=== PATIENT | male | born 1950 | race Caucasian/White ===

== ENCOUNTER 2020-03-06 10:35 | Emergency (ER) | payer MEDICARE ==
--- NOTE | 2020-03-06 11:05 | EDM.PDOC ---
ED HPI GENERAL MEDICAL PROBLEM - General Chief Complaint: Lower Extremity Injury/Pain Stated Complaint: HURT LEFT ANKLE Time Seen by Provider: 03/06/20 10:55 Source of Information: Reports: Patient, RN History Limitations: Reports: No Limitations - History of Present Illness INITIAL COMMENTS - FREE TEXT/NARRATIVE: 69 yo male fell off a ladder about 4 ft off the ground this morning resulting in injury to his L ankle/heel. Says the entire foot is numb now. 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: Other (see below) (none) - Related Data Allergies Allergy/AdvReac Type Severity Reaction Status Date / Time Penicillins Allergy Cannot Verified 03/06/20 10:59 Remember Home Meds: Home Meds Acetaminophen/HYDROcodone [Gillett 325-5 MG] 1 - 2 tab PO Q6H PRN #20 tab 03/06/20 [Rx] Omeprazole 1 tab PO DAILY 03/06/20 [History] atenoloL [Atenolol] 1 tab PO DAILY 03/06/20 [History] atorvaSTATin Calcium [Atorvastatin Calcium] 1 tab PO DAILY 03/06/20 [History] lisinopriL [Lisinopril] 1 tab PO DAILY 03/06/20 [History] Past Medical History - Past Surgical History HEENT Surgical History: Reports: Tonsillectomy Cardiovascular Surgical History: Reports: Coronary Artery Bypass, Coronary Artery Stent Social & Family History - Tobacco Use Smoking Status *Q: Never Smoker Review of Systems - Review of Systems Review Of Systems: See Below Constitutional: Reports: No Symptoms Musculoskeletal: Reports: Foot Pain (L foot and ankle) Skin: Reports: No Symptoms Neurological: Reports: Numbness (L foot and ankle) ED EXAM, GENERAL - Physical Exam Exam: See Below Exam Limited By: No Limitations General Appearance: Alert, WD/WN, No Apparent Distress Extremities: Normal Inspection, No Pedal Edema, Limited Range of Motion (due to pain, L heel pain with palpation). No: Normal Range of Motion, Non-Tender, Pedal Edema Neurological: Alert, Oriented, CN II-XII Intact, Normal Cognition, No Motor/Sensory Deficits Psychiatric: Normal Affect, Normal Mood Skin Exam: Warm, Dry, Intact, Normal Color, No Rash Course - Vital Signs Last Recorded V/S: Last Vital Signs Temp 36.1 C 03/06/20 11:04 Pulse 64 03/06/20 11:04 Resp 18 03/06/20 11:04 BP 143/62 H 03/06/20 11:04 Pulse Ox 100 03/06/20 11:04 - Orders/Labs/Meds Orders: Active Orders 24 hr Category Date Time Status Ankle Min 3V Lt [CR] Stat Exams 03/06/20 10:41 Taken Calcaneous Lt [CR] Stat Exams 03/06/20 11:02 Taken Acetaminophen/HYDROcodone [Gillett 325-5 MG] Med 03/06/20 11:49 Once 1 tab PO ONETIME ONE Medication Orders Hydrocodone Bitart/Acetaminophen (Gillett 325-5 Mg) 1 tab PO ONETIME ONE Stop: 03/06/20 11:50 Meds: Medications Generic Name Dose Route Start Last Admin Trade Name Freq PRN Reason Stop Dose Admin Hydrocodone Bitart/Acetaminophen 1 tab 03/06/20 11:49 Gillett 325-5 Mg PO 03/06/20 11:50 ONETIME ONE - Radiology Interpretation Free Text/Narrative:: L calcaneous X-ray-Fx'd L ankle X-ray-neg Departure - Departure Time of Disposition: 12:10 Disposition: Home, Self-Care 01 Condition: Fair Clinical Impression: Left calcaneal fracture Qualifiers: Encounter type: initial encounter Calcaneus location: unspecified portion of calcaneus Fracture type: closed Fracture alignment: nondisplaced Qualified Code(s): S92.002A - Unspecified fracture of left calcaneus, initial encounter for closed fracture - Discharge Information *PRESCRIPTION DRUG MONITORING PROGRAM REVIEWED*: No *COPY OF PRESCRIPTION DRUG MONITORING REPORT IN PATIENT LÓPEZ: No Prescriptions: Acetaminophen/HYDROcodone [Gillett 325-5 MG] 1 - 2 tab PO Q6H PRN #20 tab PRN Reason: Pain Referrals: PCP,None [Primary Care Provider] - Forms: ED Department Discharge Additional Instructions: Elevate your foot to reduce swelling/pain. Take ibuprofen 400 mg every 6 hrs with food for pain relief. Add either acetaminophen OR Gillett for added pain relief. No weight bearing on that leg, either use crutches or a knee walker to get around. Take your X-ray copies to an orthopedic appt that you should have before the end of this week. Sepsis Event Note (ED) - Focused Exam Vital Signs: Vital Signs Temp Pulse Resp BP Pulse Ox 03/06/20 11:04 36.1 C 64 18 143/62 H 100 03/06/20 10:59 36.1 C 64 18 143/62 H 100 - My Orders Last 24 Hours: My Active Orders 03/06/20 10:41 Ankle Min 3V Lt [CR] Stat 03/06/20 11:02 Calcaneous Lt [CR] Stat 03/06/20 11:49 Acetaminophen/HYDROcodone [Gillett 325-5 MG] 1 tab PO ONETIME ONE - Assessment/Plan Last 24 Hours: My Active Orders 03/06/20 10:41 Ankle Min 3V Lt [CR] Stat 03/06/20 11:02 Calcaneous Lt [CR] Stat 03/06/20 11:49 Acetaminophen/HYDROcodone [Gillett 325-5 MG] 1 tab PO ONETIME ONE
[2020-03-06] MEDS ORDERED: Acetaminophen/HYDROcodone 325-5 MG Tab PO ONE (11:49)
--- NOTE | 2020-03-06 11:55 | CRLCR ---
Indication: Fall. Technique: Left ankle 3 views. Comparison: None. Findings: There is an acute displaced fracture of the calcaneus better seen on the dedicated calcaneal views. Ankle mortise is intact. Soft tissue swelling about the heel. Impression: 1. Acute displaced fracture of the calcaneus better seen on the dedicated calcaneal views. 2. Soft tissue swelling about the heel. Dictated by Adelaide Galvez MD @ Mar 06 2020 11:52AM Signed by Dr. Adelaide Galvez @ Mar 06 2020 11:54AM
--- NOTE | 2020-03-06 11:59 | CRLCR ---
Indication: Fall. Technique: Left calcaneus 3 views. Comparison: None. Findings: There is an acute displaced oblique fracture through the calcaneus. Cannot exclude a fracture of the inferior aspect of the talus. Soft tissue swelling about the heel. Impression: 1. Acute displaced oblique fracture through the calcaneus. 2. Possible fracture of the inferior aspect of the talus. 3. Soft tissue swelling about the heel. Dictated by Adelaide Galvez MD @ Mar 06 2020 11:54AM Signed by Dr. Adelaide Galvez @ Mar 06 2020 11:57AM
== END 2020-03-06 12:28 | disposition home or self-care (01) ==
LOC: JP.ED 10:35
DX: S92.002A Unspecified fracture of left calcaneus, initial encounter for closed fracture (principal); Z95.1 Presence of aortocoronary bypass graft; Z88.0 Allergy status to penicillin; Z79.899 Other long term (current) drug therapy; W11.XXXA Fall on and from ladder, initial encounter
CPT/HCPCS: 73610; 73650; 99283; A9270